=== PATIENT | female | born 1970 | race Caucasian/White ===

== ENCOUNTER 2016-09-25 11:25 | Emergency (ER) | payer OTHER ==
[~2016-09-25] VITALS: Ht 172.7 cm; Wt 102.1 kg
[~2016-09-25 11:25] MED LIST: AMOXIL; DARVOCET-N 1001 TAB; TYLENOL PM EXTR1 TA1 PO
[2016-09-25 11:45] VITALS: BP 133/74
[2016-09-25] MEDS ORDERED: DEXAMETHASONE 4 MG/ML VIAL PO ONE (12:55)
[2016-09-25] MEDS ORDERED: METOCLOPRAMIDE 10 MG TAB PO ONE (12:55)
[2016-09-25] MEDS ORDERED: ACETAMINOPHEN EXTRA STRENGTH 500 MG TAB PO ONE (12:55)
[2016-09-25] MEDS ORDERED: DEXAMETHASONE 4 MG TAB PO ONE (13:05)
[2016-09-25] MEDS ORDERED: DEXAMETHASONE 4 MG TAB ONE (13:08)
--- NOTE | 2016-09-25 13:10 | NUR ---
PATIENT IS A 46 YO FEMALE BIB SELF FOR HEADACHE FOR 1 DAY, AWAKE AND ALERT ON ARRIVAL ABLE TO AMBULATE.
[2016-09-25 13:56] VITALS: BP 131/87
--- NOTE | 2016-09-25 13:56 | NUR ---
Patient discharged with v/s stable. Written and verbal after care instructions given and explained. Patient alert, oriented and verbalized understanding of instructions. Ambulatory with steady gait. All questions addressed prior to discharge. ID band removed. Patient advised to follow up with PMD. Rx of TRAMADOL HYDROCHLORIDE 50MG TAB & MOTRIN 600MG given. Patient educated on indication of medication including possible reaction and side effects. Opportunity to ask questions provided and answered.
== END 2016-09-25 13:56 | disposition home or self-care (01) ==
LOC: MED 11:25
DX: R51 Headache (principal); F17.210 Nicotine dependence, cigarettes, uncomplicated; J45.909 Unspecified asthma, uncomplicated; E11.9 Type 2 diabetes mellitus without complications
CPT/HCPCS: 36415; 70450; 84703; 99284; J8597; Q0163

== ENCOUNTER 2017-01-19 10:05 | Emergency (ER) | payer OTHER ==
[~2017-01-19] VITALS: Ht 170.2 cm; Wt 104.4 kg
[~2017-01-19 10:05] MED LIST changes: +ACET1TAB PO; -AMOXIL; -DARVOCET-N 1001 TAB; -TYLENOL PM EXTR1 TA1 PO
[2017-01-19 10:27] VITALS: BP 131/72
--- NOTE | 2017-01-19 10:35 | NUR ---
PATIENT AMBULATED TO ER BED 7.
--- NOTE | 2017-01-19 10:36 | NUR ---
PATIENT PRESENTS TO ED WITH C/O LLQ PAIN W/ NAUSEA X THIS MORNING;DENIES VOMITTING /DIARRHEA; HX;ASTHMA/BODERLINE DM; RX;NONE; DENIES V/D; SKIN IS PINK/WARM/DRY; AAOX4 WITH EVEN AND STEADY GAIT; LUNGS CLEAR BL; HR EVEN AND REGULAR; PT DENIES ANY FEVER, CP, SOB, OR COUGH AT THIS TIME; PATIENT STATES PAIN OF 8/10 AT THIS TIME; VSS; PATIENT POSITIONED FOR COMFORT; HOB ELEVATED; BEDRAILS UP X2; BED DOWN. ER MD MADE AWARE OF PT STATUS.
--- NOTE | 2017-01-19 10:45 | NUR ---
PATIENT BEING EVALUATED BY DR. GONZALEZ.
[2017-01-19] MEDS ORDERED: HYDROmorphone 1 MG/ML AMP IVP ONE (11:00)
[2017-01-19] MEDS ORDERED: NACL 0.9% 1,000 ML IV ONE ×2 (11:00→12:55)
[2017-01-19] MEDS ORDERED: ONDANSETRON 4 MG/2 ML VIAL IVP ONE (11:00)
[2017-01-19 11:24] LABS: BASOPHILS # (AUTO) 0.3 K/uL (0.00-0.22); BASOPHILS % (AUTO) 3.8 % (0.0-2.0); EOSINOPHILS # (AUTO) 0.3 K/uL (0-0.4); EOSINOPHILS % (AUTO) 3.2 % (0.0-4.0); HEMATOCRIT 44.7 % (36-48); LYMPHOCYTES # (AUTO) 1.2 K/uL (2.5-16.5); LYMPHOCYTES % (AUTO) 14.1 % (20.5-51.1); MEAN CORPUSCULAR HEMOGLOBIN 30 pg (27-31); MEAN CORPUSCULAR HGB CONC 34 g/dL (33-37); MEAN CORPUSCULAR VOLUME 90 fL (80-94); MONOCYTES # (AUTO) 0.5 K/uL (0.8-1.0); NEUTROPHILS # (AUTO) 5.9 K/uL (1.8-7.7); NEUTROPHILS % (AUTO) 72.9 % (42.2-75.2); PLATELET COUNT (AUTO) 288 K/uL (140-450); RED BLOOD CELL COUNT(AUTO) 4.98 MIL/uL (4.20-5.40); RED CELL DISTRIBUTION WIDTH 12.9 % (11.6-13.7); WHITE BLOOD COUNT (AUTO) 8.2 K/uL (4.8-10.8)
[2017-01-19 11:27] LABS: APPEARANCE,URINE HAZY (CLEAR); BILIRUBIN,URINE NEGATIVE (NEGATIVE); BLOOD, URINE NEGATIVE (NEGATIVE); COLOR,URINE YELLOW (YELLOW); LEUKOCYTE ESTERASE ,URINE NEGATIVE (NEGATIVE); NITRITE, URINE NEGATIVE (NEGATIVE); UGLUCOSE NEGATIVE (NEGATIVE)
[2017-01-19 11:31] LABS: ALBUMIN 3.5 g/dL (3.4-5.0); ANION GAP 9.6 (8-16); CARBON DIOXIDE 27.4 mmol/L (21-32); CREATININE 0.8 mg/dL (0.6-1.3); TOTAL BILIRUBIN 0.6 mg/dL (0.0-1.0)
--- NOTE | 2017-01-19 11:45 | NUR ---
PT VERBALIZES RELIEF FROM PAIN; PAIN SCALE OF 0/10;WILL CONTINUE TO MONITOR PT.
--- NOTE | 2017-01-19 12:58 | NUR ---
PT LYING ON ASKED FOR ICE CHIPS;PROVIDED SOME ICE;NO ACUTE DISTRESS NOTED;WILL CONTINUE TO MONITOR PT.
--- NOTE | 2017-01-19 14:11 | NUR ---
PT RESTING ON BED;ALL MONITORS IN PLACED;NO ACUTE DISTRESS NOTED;WILL CONTINUE TO MONITOR PT.
--- NOTE | 2017-01-19 14:27 | NUR ---
WENT TO CT SACN ACCOMPANIED BY TECH.
--- NOTE | 2017-01-19 14:27 | NUR ---
Pete carrillo in [facility] - 01/19/17 at 1515 by MILAN WENT TO XRAY ACCOMPANIED BY TECH.
--- NOTE | 2017-01-19 14:32 | NUR ---
BACK FROM CT SCAN ACCOMPANIED BY ROQUE.
--- NOTE | 2017-01-19 14:32 | NUR ---
Pete carrillo in [facility] - 01/19/17 at 1516 by MILAN BACK FROM XRAY ACCOMPANIED BY TECH.
[2017-01-19 15:37] VITALS: BP 126/74
--- NOTE | 2017-01-19 15:37 | NUR ---
Patient discharged with v/s stable. Written and verbal after care instructions given and explained. Patient verbalized understanding. Ambulatory with steady gait. All questions addressed prior to discharge. Advised to follow up with PMD.
== END 2017-01-19 15:37 | disposition home or self-care (01) ==
LOC: MED 10:12
DX: K52.9 Noninfective gastroenteritis and colitis, unspecified (principal); E11.9 Type 2 diabetes mellitus without complications; J45.909 Unspecified asthma, uncomplicated; Z79.1 Long term (current) use of non-steroidal anti-inflammatories (NSAID)
CPT/HCPCS: 36415; 74176; 80053; 81003; 81025; 82150; 83605; 83690; 84484; 84703; 85025; 87040; 93005; 96361; 96374; 96375; 99285; J1170; J2405; J7030

== ENCOUNTER 2018-01-07 01:27 | Emergency (ER) | payer MEDICAID ==
[~2018-01-07] VITALS: Ht 167.6 cm; Wt 95.3 kg
[2018-01-07 01:32] VITALS: BP 143/91
--- NOTE | 2018-01-07 01:32 | NUR ---
TO BED # 11 AMBULATORY.
--- NOTE | 2018-01-07 01:52 | NUR ---
Dr. Meyer evaluating patient at bedside.
[2018-01-07] MEDS ORDERED: KETOROLAC 60 MG/2 ML VIAL IM ONE (01:55)
--- NOTE | 2018-01-07 02:00 | NUR ---
BIB SELF C/O HEADACHE X2 DAYS W/ SENSITIVITY TO LIGHT, NO VISUAL DISTURBANCES. PT HAS HISTORY OF MIGRAINES, STATES SHE HAS TAKEN TYLENOL AND EXCEDRIN W/ NO RELIEF. PT IS AWAKE AND LAYING IN BED, CALM AND ACTING APPROPRIATE.
[2018-01-07 02:40] VITALS: BP 145/90
[2018-01-07] MEDS ORDERED: PROMETHAZINE 25 MG/ML VIAL IVP ONE (02:40)
[2018-01-07] MEDS ORDERED: MORPHINE SULFATE 4 MG/ML SYR IVP ONE (02:40)
--- NOTE | 2018-01-07 02:40 | NUR ---
Patient discharged with v/s stable. Written and verbal after care instructions given and explained. Patient alert, oriented and verbalized understanding of instructions. Ambulatory with steady gait. All questions addressed prior to discharge. ID band removed. Patient advised to follow up with PMD. Rx of NORCO, MOTRIN given. Patient educated on indication of medication including possible reaction and side effects. Opportunity to ask questions provided and answered.
== END 2018-01-07 02:40 | disposition home or self-care (01) ==
LOC: MED 01:27
DX: R51 Headache (principal); J45.909 Unspecified asthma, uncomplicated; Z79.899 Other long term (current) drug therapy; F17.200 Nicotine dependence, unspecified, uncomplicated
CPT/HCPCS: 96372; 99283; J1885

== ENCOUNTER 2018-02-20 07:37 | Emergency (ER) | payer MEDICAID ==
[~2018-02-20] VITALS: Ht 167.6 cm; Wt 99.8 kg
[2018-02-20 07:40] VITALS: BP 136/90
[2018-02-20] MEDS: METOCLOPRAMIDE 10 MG/2 ML INJ VIAL IVP ONE (08:15)
[2018-02-20] MEDS: KETOROLAC 30 MG/ML VIAL IVP ONE (08:15)
[2018-02-20] MEDS: diphenhydrAMINE 50 MG/ML VIAL IVP ONE (08:15)
[2018-02-20] MEDS: NACL 0.9% 1,000 ML IV ONE (08:16)
[2018-02-20] MEDS: HYDROcodone/APAP 5/325 MG 1 TAB TAB PO ONE (09:10)
[2018-02-20 09:39] VITALS: BP 138/86
== END 2018-02-20 09:39 | disposition home or self-care (01) ==
LOC: MED 07:37
DX: R11.2 Nausea with vomiting, unspecified (principal); R51 Headache; J45.909 Unspecified asthma, uncomplicated; E11.9 Type 2 diabetes mellitus without complications; F17.210 Nicotine dependence, cigarettes, uncomplicated
CPT/HCPCS: 96361; 96374; 96375; 99284; J1200; J1885; J2765; 81025; J7030

== ENCOUNTER 2018-04-09 17:29 | Emergency (ER) | payer MEDICAID ==
[~2018-04-09] VITALS: Ht 167.6 cm; Wt 99.8 kg
[2018-04-09 17:35] VITALS: BP 126/74
--- NOTE | 2018-04-09 17:41 | NUR ---
PT TAKEN TO BED 6
--- NOTE | 2018-04-09 17:47 | NUR ---
PATIENT PRESENTS TO ED WITH C/O CHILLS, SOB, DRY COUGH, TIGHTNESS CHEST FEELING, DENIES CHEST PAIN, HEADACHE AND DIZZINESS X 3 DAYS. AAOX4 WITH EVEN AND STEADY GAIT; LUNGS CLEAR BL; HR EVEN AND REGULAR; DENIES N/V/D; SKIN IS PINK/WARM/DRY; PATIENT STATES HEADACHE OF 6/10 AT THIS TIME; VSS; PATIENT POSITIONED FOR COMFORT; HOB ELEVATED; BEDRAILS UP X2; BED DOWN. ER MD MADE AWARE OF PT STATUS.
--- NOTE | 2018-04-09 17:51 | NUR ---
Patient being evaluated by physician at bedside.
[2018-04-09] MEDS ORDERED: ALBUTEROL SULFATE/IPRATROPIU 3 ML SOL IH ONE (18:10)
--- NOTE | 2018-04-09 18:34 | NUR ---
Respiratory Therapist at bedside for respiratory intervention.
[2018-04-09 18:56] VITALS: BP 118/68
--- NOTE | 2018-04-09 18:56 | NUR ---
Patient discharged with v/s stable. Written and verbal after care instructions given and explained. Patient alert, oriented and verbalized understanding of instructions. Ambulatory with steady gait. All questions addressed prior to discharge. ID band removed. Patient advised to follow up with PMD. Rx of QVAR, ALBUTEROL, LORATADINE, ACETAMINOPHEN given. Patient educated on indication of medication including possible reaction and side effects. Opportunity to ask questions provided and answered.
== END 2018-04-09 18:56 | disposition home or self-care (01) ==
LOC: MED 17:29
DX: J45.901 Unspecified asthma with (acute) exacerbation (principal); H65.93 Unspecified nonsuppurative otitis media, bilateral; E11.9 Type 2 diabetes mellitus without complications; F17.210 Nicotine dependence, cigarettes, uncomplicated; Z79.899 Other long term (current) drug therapy
CPT/HCPCS: 99283; J7620; 94640

== ENCOUNTER 2018-11-18 07:48 | Emergency (ER) | payer MEDICAID, OTHER ==
[~2018-11-18] VITALS: Ht 167.6 cm; Wt 97.1 kg
--- NOTE | 2018-11-18 07:52 | NUR ---
PT AMBULATED TO BED 6
[2018-11-18 07:56] VITALS: BP 133/77
--- NOTE | 2018-11-18 08:00 | NUR ---
PT PRESENTED TO THE ED WITH THE CHIEF C/O RIGHT FLANK PAIN FOR 3 DAYS. NAUSEATED AT THIS TIME. NO V/D REPORTS. DENIES BURNING URINATION. DENIES ANY BLOOD IN URINE. PT HAS HX OF KIDNEY PROBLEMS. PT TOOK IBUPROFEN LAST NIGHT. STATES PAIN 5/10 AT THIS TIME. LUNGS CLEAR. ABDOMEN SOFT, ROUND AND NONTENDER. ACTIVE BOWEL SOUND.
--- NOTE | 2018-11-18 08:11 | NUR ---
DR. ROSS BEDSIDE EVALUATING PT
--- NOTE | 2018-11-18 08:13 | NUR ---
PT BEING EVALUATED BY ER AT THIS TIME.
[2018-11-18] MEDS ORDERED: KETOROLAC 30 MG/ML VIAL IM ONE (08:15)
[2018-11-18] MEDS ORDERED: ONDANSETRON 4 MG ODT PO ONE (10:15)
[2018-11-18] MEDS ORDERED: MORPHINE SULFATE 4 MG/ML SYR IM ONE (10:15)
--- NOTE | 2018-11-18 11:11 | NUR ---
Patient discharged with v/s stable. Written and verbal after care instructions given and explained. Patient alert, oriented and verbalized understanding of instructions. Ambulatory with steady gait. All questions addressed prior to discharge. ID band removed. Patient advised to follow up with PMD. Rx of LIDODERM 5% TRANSDERMAL PATCH, VALIUM, AND NAPROSYN given. Patient educated on indication of medication including possible reaction and side effects. Opportunity to ask questions provided and answered.
[2018-11-18 11:16] VITALS: BP 125/79
== END 2018-11-18 11:11 | disposition home or self-care (01) ==
LOC: MED 07:48
DX: R10.9 Unspecified abdominal pain (principal); R11.0 Nausea; J45.909 Unspecified asthma, uncomplicated; E11.9 Type 2 diabetes mellitus without complications; Z79.899 Other long term (current) drug therapy
CPT/HCPCS: 76770; 81002; 81025; 96372; 99284; J1885; J2270; Q0092; Q0162

== ENCOUNTER 2020-03-25 10:04 | Emergency (ER) | payer MEDICAID, OTHER ==
[~2020-03-25] VITALS: Ht 170.2 cm; Wt 101.6 kg
[2020-03-25 10:08] VITALS: BP 146/82
[2020-03-25] MEDS: KETOROLAC 60 MG/2 ML VIAL IM ONE (10:43)
[2020-03-25 10:50] VITALS: BP 146/82
== END 2020-03-25 10:49 | disposition home or self-care (01) ==
LOC: MED 10:04
DX: L03.113 Cellulitis of right upper limb (principal); E11.9 Type 2 diabetes mellitus without complications; F17.210 Nicotine dependence, cigarettes, uncomplicated; J45.909 Unspecified asthma, uncomplicated; Z79.899 Other long term (current) drug therapy; Z98.890 Other specified postprocedural states
CPT/HCPCS: 96372; 99283; J1885

== ENCOUNTER 2020-05-20 21:09 | Emergency (ER) | payer MEDICAID ==
[~2020-05-20] VITALS: Ht 167.6 cm; Wt 99.8 kg
[2020-05-20 21:20] VITALS: BP 160/90
--- NOTE | 2020-05-20 21:23 | NUR ---
TO LOBBY A/W BED AMBULATORY
[2020-05-20 21:28] VITALS: BP 160/90
--- NOTE | 2020-05-20 21:30 | NUR ---
SEEN AND EXAMINED BY TARAN WITH ORDERS AND CARRIED OUT
[2020-05-20] MEDS ORDERED: LIDOCAINE MPF 1% 10 MG/ML VIAL INJ ONE (21:35)
== END 2020-05-20 22:30 | disposition home or self-care (01) ==
LOC: MED 21:09
DX: H00.016 Hordeolum externum left eye, unspecified eyelid (principal); J45.909 Unspecified asthma, uncomplicated; E11.9 Type 2 diabetes mellitus without complications
CPT/HCPCS: 10060; 99282; J2001; 99283